=== PATIENT | female | born 2000 | race Caucasian/White ===

== ENCOUNTER 2025-03-13 21:17 | Emergency (ER) | payer OTHER ==
[~2025-03-13] VITALS: Ht 154.9 cm; Wt 56.0 kg
[2025-03-13] MEDS: IBUPROFEN 400 MG TABLET PO ONE (23:48)
[2025-03-13] MEDS: DiphenhydrAMINE HCL 25 MG CAPSULE PO ONE (23:48)
[2025-03-14 01:00] VITALS: BP 116/65; PULSE 68; RESP 18; TEMP 97.3; O2SAT 100
[2025-03-14] MEDS: TRIAMCINOLONE 0.1% 15 GM OINTMENT TP ONE (01:02)
[2025-03-14] MEDS: GABAPENTIN 300 MG CAPSULE PO ONE (01:02)
== END 2025-03-14 03:40 | disposition home or self-care (01) ==
LOC: EMS 21:19
DX: L27.1 Localized skin eruption due to drugs and medicaments taken internally (principal); T50.995A Adverse effect of other drugs, medicaments and biological substances, initial encounter; Z88.8 Allergy status to other drugs, medicaments and biological substances; Y92.89 Other specified places as the place of occurrence of the external cause
CPT/HCPCS: 99284; Z7502; Z7610